=== PATIENT | male | born 1950 | race Caucasian/White ===

== ENCOUNTER 2021-08-23 16:36 | Inpatient (IN) | payer OTHER ==
[2021-08-23 19:53] VITALS: BMI 25.8
[2021-08-23] MEDS ORDERED: P-EPHED 60MG/TRIPROLIDI 2.5MG TABLET PO PRN (20:16)
[2021-08-23] MEDS ORDERED: MAG HYDROX/AL HYDROX/SIMETH 30 ML UNIT-DOSE CUP PO PRN (20:16)
[2021-08-23] MEDS ORDERED: BENZOCAINE/MENTHOL (CHLORASEPTIC ) LOZENGE MM PRN (20:16)
[2021-08-23] MEDS ORDERED: MAGNESIUM HYDROX 2400MG/30ML ORAL SUSPENSION 30 ML CUP PO PRN (20:16)
[2021-08-23] MEDS ORDERED: guaiFENesin 200 MG/10 ML 10 ML UNIT-DOSE CUPS PO PRN (20:16)
[2021-08-23] MEDS ORDERED: ACETAMINOPHEN 325 MG TABLET (FP) PO PRN ×2 (20:16)
[2021-08-23] MEDS ORDERED: LOPERAMIDE HCL 2 MG CAPSULE PO PRN (20:16)
[2021-08-23] MEDS ORDERED: ONDANSETRON *ODT* 4 MG TABLET SL PRN (20:16)
[2021-08-23] MEDS ORDERED: DICYCLOMINE HCL 10 MG CAPSULE PO PRN (20:16)
[2021-08-23] MEDS ORDERED: IBUPROFEN 400 MG TABLET (FP) PO PRN (20:16)
[2021-08-23] MEDS ORDERED: MAGNESIUM CITRATE 300 ML BOTTLE PO PRN (20:16)
[2021-08-23] MEDS ORDERED: IBUPROFEN 600 MG TABLET (FP) PO PRN (20:16)
[2021-08-23] MEDS ORDERED: BISMUTH SUBSALICYLATE 524 MG/30 ML PO PRN (20:16)
[2021-08-23] MEDS ORDERED: chlordiazePOXIDE HCL 25 MG CAPSULE PO ONE (20:18)
[2021-08-23] MEDS ORDERED: METOPROLOL TARTRATE 25 MG TABLET (FP) PO ONE (20:20)
[2021-08-23] MEDS: MELATONIN 5 MG TABLETS PO SCH (22:45)
[2021-08-23] MEDS: THIAMINE HCL 100 MG TABLET (FP) PO SCH (22:46)
[2021-08-23] MEDS: hydrOXYzine PAMOATE 25 MG CAPSULE (FP) PO PRN (22:46)
[2021-08-23] MEDS: chlordiazePOXIDE HCL 25 MG CAPSULE PO SCH (22:46)
[2021-08-23] MEDS: LIDOCAINE PATCH REMOVAL MC SCH (22:48)
[2021-08-24] MEDS: chlordiazePOXIDE HCL 25 MG CAPSULE PO SCH ×4 (05:56→22:24)
[2021-08-24] MEDS: PRENATAL VITAMINS W/ FOLIC ACID TABLET (FP) PO SCH (10:15)
[2021-08-24] MEDS: LIDOCAINE 5% TOPICAL PATCH TP SCH (10:16)
[2021-08-24] MEDS: metoPROLOL SUCCINATE 25 MG TAB.SR.24H (FP) PO SCH (11:26)
[2021-08-24 11:46] LABS: HEMATOCRIT 38.6 % (35.4-49); HEMOGLOBIN 13.2 GM/dL (11.7-16.9); MCH 31.3 pg (25.7-33.7); MCHC 34.1 g/dl (32.0-35.9); MEAN CELL VOLUME 91.6 fl (80-96); MEAN PLT VOLUME 8.3 fl (7.5-11.1); PLATELET COUNT 193 10^3/uL (134-434); RBC 4.21 M/mm3 (4.00-5.60); RDW 13.4 % (11.9-15.9); WHITE BLOOD COUNT 6.2 K/mm3 (4.0-10.0)
[2021-08-24 15:06] LABS: ALBUMIN 3.2 g/dl (3.4-5.0); CALCIUM 9.3 mg/dL (8.5-10.1)
[2021-08-24 15:09] LABS: CREATININE 0.8 mg/dL (0.55-1.3)
[2021-08-24 15:11] LABS: TOT PROT 6.1 g/dl (6.4-8.2)
[2021-08-24] MEDS: hydrOXYzine PAMOATE 25 MG CAPSULE (FP) PO PRN ×2 (18:49→22:47)
[2021-08-24] MEDS: chlordiazePOXIDE HCL 25 MG CAPSULE PO PRN (18:50)
[2021-08-24] MEDS: MELATONIN 5 MG TABLETS PO SCH (22:23)
[2021-08-24] MEDS: THIAMINE HCL 100 MG TABLET (FP) PO SCH (22:23)
[2021-08-24] MEDS: LIDOCAINE PATCH REMOVAL MC SCH (22:46)
[2021-08-25] MEDS: hydrOXYzine PAMOATE 25 MG CAPSULE (FP) PO PRN ×2 (04:41→10:04)
[2021-08-25] MEDS: chlordiazePOXIDE HCL 25 MG CAPSULE PO SCH ×2 (04:41→10:04)
[2021-08-25] MEDS: PRENATAL VITAMINS W/ FOLIC ACID TABLET (FP) PO SCH (10:03)
[2021-08-25] MEDS: LIDOCAINE 5% TOPICAL PATCH TP SCH (10:04)
[2021-08-25] MEDS: metoPROLOL SUCCINATE 25 MG TAB.SR.24H (FP) PO SCH (11:49)
[2021-08-25 12:44] VITALS: BP 135/78; PULSE 65; TEMP 97.5
[2021-08-25] MEDS ORDERED: MELATONIN 5 MG TABLETS PO SCH (13:38)
[2021-08-25] MEDS: chlordiazePOXIDE HCL 25 MG CAPSULE PO PRN (13:41)
[2021-08-25] MEDS ORDERED: NICOTINE 21 MG/24 HOURS TOPICAL PATCH TD SCH (13:45)
[2021-08-25] MEDS ORDERED: NICOTINE 10 MG CARTRIDGE (INHALER) IH PRN (13:45)
[2021-08-25] MEDS ORDERED: NICOTINE POLACRILEX 4 MG GUM BUC PRN (13:45)
[2021-08-26] MEDS ORDERED: chlordiazePOXIDE HCL 10 MG CAPSULE PO PRN
[2021-08-26] MEDS ORDERED: chlordiazePOXIDE HCL 10 MG CAPSULE PO SCH (05:00)
[2021-08-27] MEDS ORDERED: chlordiazePOXIDE HCL 10 MG CAPSULE PO SCH (05:00)
[2021-08-28] MEDS ORDERED: chlordiazePOXIDE HCL 10 MG CAPSULE PO ONE (05:00)
== END 2021-08-25 16:47 | disposition left against medical advice (07) | DRG 894 ==
LOC: YASAS 16:36 → Y6N 21:04
PROVIDERS: ADMIT Allergy & Immunology; ATTEND Surgery
PROC: HZ2ZZZZ Detoxification Services for Substance Abuse Treatment (ICD-10-PCS; principal; 2021-08-23)
DX: F10.230 Alcohol dependence with withdrawal, uncomplicated (principal); F17.210 Nicotine dependence, cigarettes, uncomplicated; I10 Essential (primary) hypertension; R26.89 Other abnormalities of gait and mobility; Z96.651 Presence of right artificial knee joint
CPT/HCPCS: 36415; 80053; 85027; 86780; C9803-CS; Q0162; U0003; U0005